=== PATIENT | male | born 1990 | race African-American/Black ===

== ENCOUNTER 2024-05-27 16:29 | Observation (INO) | payer BC ==
[2024-05-27] VITALS (24 sets, daily range): BP systolic 119–164; BP diastolic 71–99
[~2024-05-27] VITALS: Ht 172.7 cm; Wt 97.6 kg
[~2024-05-27 16:29] MED LIST: AMOX/K CLAV500 MG PO; FLEXERIL OR; NAPROSYN500 MG OR; NAPROSYN500 MG PO; NAPROXEN500 MG PO; NO; NO HOME MEDS; NO MEDS; TYLENOL # 31 TAB PO; ULTRAM50 M1 PO
[2024-05-27] MEDS ORDERED: SODIUM CHLORIDE 0.9% 1,000 ML IV ONE ×3 (16:45→17:50)
[2024-05-27] MEDS ORDERED: ONDANSETRON HCl 4 MG/2 ML SDV IV ONE (16:45)
[2024-05-27 17:12] LABS: BASO% 0.2 % (0-3); EOS% 0.1 % (0-8); IMMATURE GRANULOCYTES 0.2 % (0.0-5.0); LYMPH% 7.7 % (15-41); MEAN CELL VOLUME 95.6 fL CALC (80.0-100.0); MEAN CORPUSCULAR HGB 31.5 pG CALC (26.0-32.0); MONO% 4.5 % (2-13); NEUT# 14.38 thou/uL (1.82-7.42); NEUT% 87.3 % (42-76); RED BLOOD COUNT 5.68 mill/uL (4.70-6.10); RED CELL DISTRI WIDTH 12.5 % (11.5-15.5)
[2024-05-27 17:14] LABS: HEMATOCRIT 54.3 % (39.0-50.0); HEMOGLOBIN 17.9 g/dl (14.0-18.0)
[2024-05-27] MEDS ORDERED: ACETAMINOPHEN 1,000 MG/100 ML VIAL IV ONE (17:20)
[2024-05-27 17:25] LABS: ALBUMIN 5.6 g/dL (3.2-5.0); BILIRUBIN, TOTAL 0.9 mg/dL (0.2-1.3); POTASSIUM 4.4 mmol/l (3.5-5.1)
[2024-05-27 17:26] LABS: CREATININE 2.9 mg/dL (0.7-1.3); TOTAL PROTEIN 10.8 g/dL (6.3-8.2)
[2024-05-27] MEDS ORDERED: MORPHINE SULFATE 4 MG/ML VIAL IV ONE (18:30)
[2024-05-27] MEDS ORDERED: ACETAMINOPHEN 325 MG/TAB PO PRN (20:00)
[2024-05-27] MEDS ORDERED: MAGNESIUM HYDROXIDE 30 ML UDC PO PRN (20:00)
[2024-05-27] MEDS ORDERED: Zaleplon 5 MG/CAP PO PRN (20:00)
[2024-05-27] MEDS ORDERED: SODIUM CHLORIDE 0.9% 1,000 ML IV SCH (20:05)
[2024-05-27] MEDS ORDERED: hydrALAZINE HCL 20 MG/ML VIAL(1 ML) IV PRN (20:05)
[2024-05-27] MEDS ORDERED: MORPHINE SULFATE 4 MG/ML VIAL IV PRN (20:05)
[2024-05-27] MEDS ORDERED: ONDANSETRON HCl 4 MG/2 ML SDV IV PRN (20:10)
[2024-05-28 03:54] VITALS: BP 118/65
[2024-05-28 04:43] VITALS: BP 118/65
[2024-05-28 05:19] LABS: URINE BILIRUBIN - DIPSTICK Negative (NEGATIVE); URINE BLOOD DIPSTICK Negative (NEGATIVE); URINE GLUCOSE - DIPSTICK Negative (NEGATIVE); URINE KETONE Negative (NEGATIVE); URINE LEUK ESTERASE Negative (NEGATIVE); URINE NITRITE - DIPSTICK Negative (Negative); URINE PH 5.5 (4.5-8.0); URINE PROTEIN - DIPSTICK Negative (NEG-TRACE); URINE UROBILINOGEN - DIPSTICK 0.2 E.U./dL (0.2)
[2024-05-28 05:20] LABS: URINE COLOR Yellow
[2024-05-28 05:25] LABS: BASO% 0.3 % (0-3); EOS% 0.9 % (0-8); IMMATURE GRANULOCYTES 0.2 % (0.0-5.0); MEAN CELL VOLUME 97.6 fL CALC (80.0-100.0); MEAN CORPUSCULAR HGB 32.8 pG CALC (26.0-32.0); MEAN CORPUSCULAR HGB CONC 33.6 g/dL CAL (32.0-36.0); MONO% 6.9 % (2-13); NEUT# 7.52 thou/uL (1.82-7.42); NEUT% 65.7 % (42-76); RED BLOOD COUNT 4.18 mill/uL (4.70-6.10); RED CELL DISTRI WIDTH 12.8 % (11.5-15.5)
[2024-05-28 05:27] LABS: HEMATOCRIT 40.8 % (39.0-50.0); HEMOGLOBIN 13.7 g/dl (14.0-18.0)
[2024-05-28 05:37] LABS: CREATININE 1.3 mg/dL (0.7-1.3); POTASSIUM 3.9 mmol/l (3.5-5.1)
[2024-05-28 05:50] LABS: ALBUMIN 3.5 g/dL (3.2-5.0); BILIRUBIN, TOTAL 0.5 mg/dL (0.2-1.3); TOTAL PROTEIN 6.4 g/dL (6.3-8.2)
[2024-05-28 08:39] VITALS: BP 122/65
== END 2024-05-28 12:26 | disposition home or self-care (01) | DRG 923 ==
LOC: ED 16:29 → ED-I 19:35 → ED 19:47 → MS2 19:48
PROVIDERS: Nurse Practitioner Family; ADMIT Internal Medicine; ATTEND Internal Medicine
DX: T67.5XXA Heat exhaustion, unspecified, initial encounter (principal); N17.9 Acute kidney failure, unspecified; E86.0 Dehydration; X30.XXXA Exposure to excessive natural heat, initial encounter; Y93.89 Activity, other specified; Y99.0 Civilian activity done for income or pay
CPT/HCPCS: G0378; J0131